=== PATIENT | female | born 1950 | race Caucasian/White ===

== ENCOUNTER 2019-11-06 10:25 | Emergency (ER) | payer MEDICARE, BC ==
[~2019-11-06] VITALS: Ht 167.6 cm; Wt 79.4 kg
--- NOTE | 2019-11-06 11:29 | NUR ---
Patient discharged to home in stable conditon. Written and verbal after care instructions given. Patient verbalizes understanding of instructions.
[2019-11-06 11:30] VITALS: BP 129/89
== END 2019-11-06 11:31 | disposition home or self-care (01) ==
LOC: ER 10:29
DX: S82.832A Other fracture of upper and lower end of left fibula, initial encounter for closed fracture (principal); F32.9 Major depressive disorder, single episode, unspecified; E78.5 Hyperlipidemia, unspecified; W01.0XXA Fall on same level from slipping, tripping and stumbling without subsequent striking against object, initial encounter; Y93.89 Activity, other specified; Y92.89 Other specified places as the place of occurrence of the external cause; Y99.8 Other external cause status
CPT/HCPCS: 73610; 73630; A4663